=== PATIENT | female | born 1940 | race Caucasian/White ===

== ENCOUNTER 2023-12-31 23:38 | Emergency (ER) | payer OTHER ==
[~2023-12-31] VITALS: Ht 152.4 cm; Wt 55.0 kg
[2023-12-31 23:41] VITALS: PULSE 96; RESP 14; O2SAT 98
[2024-01-01] MEDS: FAMOTIDINE 20MG TABLET PO ONE
[2024-01-01] MEDS: DIPHENHYDRAMINE 25MG CAPSULE PO NR
[2024-01-01] MEDS: PREDNISONE 20MG TABLET PO ONE
[2024-01-01] MEDS ORDERED: DIPHENHYDRAMINE 50MG CAPSULE PO ONE
[2024-01-01] MEDS ORDERED: DIPH25CA83 MT (02:39)
[2024-01-01] MEDS ORDERED: P20 MT (02:39)
[2024-01-01] MEDS ORDERED: FAMO20TA8 MT (02:39)
[2024-01-01] MEDS ORDERED: EPIN0.3P3 IM (02:39)
[2024-01-01 03:00] VITALS: BP 154/81; TEMP 36.66960
== END 2024-01-01 03:19 | disposition home or self-care (01) ==
LOC: ER 23:38
DX: T78.49XA Other allergy, initial encounter (principal); R21 Rash and other nonspecific skin eruption; I10 Essential (primary) hypertension; X58.XXXA Exposure to other specified factors, initial encounter
CPT/HCPCS: 99284; Q0163; J7512